=== PATIENT | female | born 1940 | race Asian ===

== ENCOUNTER 2020-06-16 21:10 | Emergency (ER) | payer MEDICARE ==
[~2020-06-16] VITALS: Ht 160 cm; Wt 54.4 kg
[2020-06-16 21:22] VITALS: Ht 160 cm; Wt 54.4 kg
[2020-06-16 21:54] LABS: PLATELET COUNT 265 x10^3mcL (130-400); RED CELL DISTRIBUTION WIDTH 14.2 % (11.5-14.5)
[2020-06-16 22:20] LABS: CALCIUM 10.9 mg/dL (8.5-10.1); CARBON DIOXIDE 30.6 mmol/L (21-32); CHLORIDE SERUM 104 mmol/L (98-107); GLUCOSE SERUM 113 mg/dL (74-106); POTASSIUM SERUM 4.1 mmol/L (3.5-5.1); SODIUM SERUM 139 mmol/L (136-145)
[2020-06-16 22:27] LABS: ALBUMIN 4.1 g/dL (3.4-5.0); ALKALINE PHOSPHATASE 76 U/L (46-116); ALT/SGPT 19 U/L (14-59); AST/SGOT 20 U/L (15-37); BILIRUBIN TOTAL 0.6 mg/dL (0.20-1.00); TOTAL PROTEIN, SERUM 7.9 g/dL (6.4-8.2)
[2020-06-17 04:12] VITALS: BP 144/97
== END 2020-06-17 04:12 | disposition short-term general hospital (02) ==
LOC: ED 21:10
PROVIDERS: Student in an Organized Health Care Education/Training Program
DX: I45.3 Trifascicular block (principal); S05.12XA Contusion of eyeball and orbital tissues, left eye, initial encounter; I10 Essential (primary) hypertension; E78.5 Hyperlipidemia, unspecified; M10.9 Gout, unspecified; W18.39XA Other fall on same level, initial encounter; Y93.01 Activity, walking, marching and hiking; Y92.091 Bathroom in other non-institutional residence as the place of occurrence of the external cause; Y99.8 Other external cause status
CPT/HCPCS: Q0092